=== PATIENT | female | born 1960 | race Two or more races ===

== ENCOUNTER → 2017-03-26 | Outpatient (CLI) | payer OTHER ==
[~2017-03-26] MED LIST: ATOR20TA15; CARV6.252; ESTR0.053; GADODIAMIDE PF 287 MG/ML 5 ML VIAL (for RAD MRI) IV PUSH ONE; GLIM1TAB; GLUC1TES75; LOSA50TA; MOME0.1C23; OMEP20CA2; POTA10TA2; PROG200C; TRAM50TA; TRIA37.53
[2017-03-26 12:02] LABS: CREATININE 0.92 MG/DL (0.50-1.00)
--- NOTE | 2017-03-26 13:21 | RADRPT ---
EXAM DATE/TIME: 03/26/2017 12:20 [facility] COMPARISON: No previous studies available for comparison. INDICATIONS : Brain mass. Pre op. CONTRAST: 14 cc Omniscan (gadodiamide) IV MEDICAL HISTORY : Hypertension. Diabetes mellitus type 2. SURGICAL HISTORY : Cholecystectomy. Appendectomy. Tubal ligation. ENCOUNTER: Subsequent ACUITY: 1 month PAIN SCORE: 0/10 LOCATION: cranial TECHNIQUE: An MRI brain stealth procedure was performed. The information will be used in the OR for localizatio n. FINDINGS: Axial contrast images were obtained for intraoperative localization There is afocal 2.3 cm mass arising from the cribriform plate, probably meningioma. No other masses are appreciated. Study was performed for stereotactic localization not diagnosis. CONCLUSION: Mass as described above. Images were transferred to the operating room digital format. Byron Dorsey MD FACR on March 26, 2017 at 13:18 Board Certified Radiologist. This report was verified electronically.
== END ==
LOC: HRAD 09:15
PROVIDERS: ATTEND Neurological Surgery
DX: D49.6 Neoplasm of unspecified behavior of brain (principal)
CPT/HCPCS: 70552; 82565; 84520; A9579

== ENCOUNTER 2017-05-06 05:47 | Inpatient (IN) | payer OTHER ==
[~2017-05-06] VITALS: Ht 160 cm; Wt 90.7 kg
[~2017-05-06 05:47] MED LIST changes: -ATOR20TA15; +ATOR20TA15 PO; -CARV6.252; +CARV6.252 PO; -ESTR0.053; +ESTR0.053 TD; -GADODIAMIDE PF 287 MG/ML 5 ML VIAL (for RAD MRI) IV PUSH ONE; -GLIM1TAB; +GLIM1TAB PO; -LOSA50TA; +LOSA50TA PO; -MOME0.1C23; +MOME0.1C23 TOPICAL; -OMEP20CA2; +OMEP20CA2 PO; -POTA10TA2; +POTA10TA2 PO; -PROG200C; +PROG200C PO; -TRAM50TA; +TRAM50TA PO; -TRIA37.53; +TRIA37.53 PO
[2017-05-06] MEDS ORDERED: METOPROLOL TARTRATE 25 MG TAB PO PRN (06:15)
[2017-05-06] MEDS ORDERED: CHLORHEXIDINE GLUCONATE 2 % 1 PACK (2 CLOTHS) TOPICAL PRN (06:15)
[2017-05-06] MEDS ORDERED: SODIUM CHLORID 0.9% 500 ML IV PRN (06:15)
[2017-05-06] MEDS ORDERED: POVIDONE IODINE 5% (ANTISEPSIS KIT) 4 APPLICATIONS EACH NARE PRN (06:15)
[2017-05-06] MEDS ORDERED: LACTATED RINGER'S 1000 ML IV PRN (06:15)
--- NOTE | 2017-05-06 06:30 | RADRPT ---
EXAM DATE/TIME: 05/06/2017 06:12 [facility] COMPARISON: No previous studies available for comparison. INDICATIONS : Evaluate for pneumonia, pneumothorax, or any communicable disease. Pre op cranial surgery. MEDICAL HISTORY : Hypertension. Diabetes mellitus type II. SURGICAL HISTORY : Cholecystectomy. Appendectomy. Tubal ligation. ENCOUNTER: Initial ACUITY: 1 day PAIN SCORE: 0/10 LOCATION: Bilateral chest FINDINGS: A single view of the chest demonstrates the lungs to be symmetrically aerated without evidence of mas s, infiltrate or effusion. No evidence of pneumothorax. The cardiomediastinal contours are unremark able. Osseous structures are intact. CONCLUSION: The lungs are clear. Marco Rodarte MD on May 06, 2017 at 6:28 Board Certified Radiologist. This report was verified electronically.
[2017-05-06] MEDS: LACTATED RINGER'S 1000 ML INJ 1,000 ML IV SCH (06:45)
[2017-05-06] MEDS ORDERED: GELFOAM SIZE 100 ONE (07:48)
[2017-05-06] MEDS ORDERED: GENTAMICIN SULFATE 80 MG/2 ML VIAL ONE (07:48)
[2017-05-06] MEDS ORDERED: THROMBIN (TOPICAL) 5,000 UNIT VIAL ONE (07:48)
[2017-05-06] MEDS ORDERED: LIDOCAINE 1%/EPINEPHrine 1:100,000 SOLN 50 ML VIAL ONE (07:48)
[2017-05-06] MEDS: ceFAZolin 1,000 MG/NS 100 ML IV SCH ×4 (07:58→11:56)
[2017-05-06] MEDS ORDERED: ACETAMINOPHEN 1000 MG/100 ML 100 ML IV ONE (08:06)
[2017-05-06] MEDS ORDERED: SUGAMMADEX SODIUM 200 MG/2 ML VIAL IV PUSH ONE ×2 (08:06)
[2017-05-06] MEDS ORDERED: APREPITANT 40 MG CAP ONE (08:26)
[2017-05-06] MEDS ORDERED: FAMOTIDINE 20 MG/2 ML VIAL ONE (08:34)
[2017-05-06] MEDS ORDERED: MIDAZOLAM HCL 2 MG/2 ML VIAL IV ONE (12:00)
[2017-05-06] MEDS ORDERED: ONDANSETRON HCL 4 MG/2 ML VIAL IV ONE (12:00)
[2017-05-06] MEDS ORDERED: ePHEDrine/NS 25 MG/5 ML SYRINGE IV ONE (12:00)
[2017-05-06] MEDS ORDERED: VECURONIUM BROMIDE 20 MG VIAL IV ONE (12:00)
[2017-05-06] MEDS ORDERED: DEXAMETHASONE SOD PHOS 4 MG/ML VIAL IV ONE (12:00)
[2017-05-06] MEDS ORDERED: SODIUM CHLORIDE 0.9% 20 ML VIAL IV ONE (12:00)
[2017-05-06] MEDS ORDERED: LIDOCAINE HCL 1% PF 5 ML SYRINGE OTHER ONE (12:00)
[2017-05-06] MEDS ORDERED: PHENYLEPH/NS 1000 MCG/10 ML SYR IV ONE (12:00)
[2017-05-06] MEDS ORDERED: PROPOFOL 200 MG/20 ML AMP IV ONE (12:00)
[2017-05-06] MEDS ORDERED: GLYCOPYRROLATE 1 MG/5 ML SYRINGE IV PUSH ONE (12:00)
[2017-05-06] MEDS ORDERED: NORMOSOL R INJ 1,000 ML IV ONE (12:00)
[2017-05-06] MEDS ORDERED: PHENYLEPHRINE HCL 10 MG/ML VIAL IV ONE (12:00)
[2017-05-06] MEDS ORDERED: ROCURONIUM INJ 50 MG/5 ML SYRINGE IV PUSH ONE (12:00)
[2017-05-06] MEDS ORDERED: ceFAZolin INJ 1,000 MG VIAL IV ONE (12:00)
[2017-05-06] MEDS ORDERED: DO NOT ADM ANY ANTICOAGULANT DRUGS PRN (14:56)
[2017-05-06] MEDS ORDERED: *HYDROmorphone PF 1 MG VIAL PERIprocedural Use ONLY ONE (15:35)
[2017-05-06] MEDS ORDERED: HYDROmorphone HCL 2 MG TAB PO PRN (15:45)
[2017-05-06] MEDS ORDERED: NALOXONE HCL 0.4 MG/ML AMP IV PUSH PRN ×2 (15:45→21:45)
[2017-05-06] MEDS ORDERED: traMADol HCL 50 MG TAB PO PRN (15:45)
--- NOTE | 2017-05-06 15:48 | PD.OP ---
Operative Report Date of Surgery: May 06, 2017 Preoperative Diagnosis: (1) Meningioma Cribriform plate meningioma Postoperative Diagnosis: (1) Meningioma Cribriform plate meningioma Procedure: Bifrontal craniotomy-resection cribriform plate meningioma. Dura reconstruction with bovine pericardium graft Anesthesia: Gen. Surgeon: Jorge Chow Air Duct Mechanic(s): Raiza Miller Operation and Findings: Findings: Very firm noncalcified dural based lesion arising from the anterior midline at the jerel elli and extending along the cribriform plate to the midline planum sphenoidale. Procedure in detail: The patient was brought into the operating room and general endotracheal anesthesia induced without difficulty. Lines were established by anesthesia ZULEYKA hose and sequential compression devices were in place Zaldivar catheter was in place Appropriate timeout procedure was performed with all personal present and in agreement The patient was positioned in supine position with all extremities appropriately padded. The head was placed in the 3-point fixation device and secured to the operating room table with the neck slightly flexed and the head mildly rotated. The BrainLab system was registered with the laser facial registration system and landmarks verified. The BrainLab system was used to bo the initial scalp flap and craniotomy opening, and was further used extensively during the procedure to guide the resection of the neoplasm. The hair overlying the scalp incision at the bifrontal region was shaved with clippers, and the operative site was sterilely prepped and draped. 1% Xylocaine with epinephrine was used for local infiltration over the incision site which was made in a curvilinear fashion over the bifrontal region just above the hairline and carried sharply down to the cranium. The scalp flap was elevated with the periosteal elevator and retracted with large scalp hooks. The 5 mm bone bur was used to place a bur hole, and the craniotome was used to incise the bone flap with the lower aspect of the bone flap at the superior edge of the frontal sinus but not extending to the frontal sinus wall.. 4-0 Nurolon dural tack up sutures placed through wire passing holes made along the edge of the craniotomy site were used as needed. The dura was extremely thin and mostly adherent to the bone flap, with residual dura edges retracted with 4-0 Nurolon suture. The sagittal sinus was tied off with 4-0 Nurolon suture and incised at the very anterior frontal region in order to preserve venous drainage. The falx was incised down to the region of the neoplasm and retracted. There was no significant brain edema noted upon opening the dura. The neoplasm was circumferentially from the surrounding arachnoid and parenchymal tissue with the [place] dissectors and the bipolar forceps with any bridging vessels coagulated with the bipolar forceps and incised with the microscissors. Any major vascular structures were carefully preserved. Cottonoid patties were used as needed to maintain the resection plane surrounding the tumor. Once the periphery of the tumor was delineated, the central portion was gradually debulked using the tissue biopsy forceps and the [place] device with bleeding controlled with bipolar forceps. The periphery of the tumor was then from the surrounding tissues and removed. The bilateral olfactory nerve was displaced laterally along the inferior border of the tumor at its attachment point to the frontal skull base and cuneiform plate region. The olfactory nerves were preserved. The anterior cerebral arteries were directly visualized and preserved behind the arachnoid plane. The dural attachment point of the neoplasm was totally resected and the dura adjacent to the cribriform plate was carefully scraped with the [place] 1 dissector and cauterized to remove any small residual fragments or neoplasm. The tumor resection site was carefully examined and bleeding carefully controlled. There was no significant bleeding at the time of closure. The brain was soft and pulsatile at the time of closure A gross total resection of the lesion was achieved. Since the dura was extremely thin and adherent to the bone flap, the dural defect was closed with a properly prepared bovine pericardium graft which was secured with 4-0 Nurolon through openings made along the edge of the craniotomy site with the wire-passing drill. The bone flap was then replaced with titanium maxillofacial plates and screws. DuraSeal was then used to secure the edges of the patch graft. [place] bone paste was then properly prepared and used to smooth out the residual defect along the craniotomy site and the titanium plates. The closure was performed with 2-0 Vicryl for the galeal closure, 4-0 nylon running for these scalp closure. A dressing of sterile Telfa, 4 x 4's, and a head stockinette were placed. The 3-point head fixation device was removed The patient was taken to recovery room in stable condition All counts were correct at the end of the case Estimated blood loss was 200 cc. Specimen of the neoplasm was sent to pathology for permanent section Jorge Chow MD May 06, 2017 15:48
[2017-05-06] MEDS: D5-1/2 NS + KCL 20 MEQ INJ 1,000 ML IV SCH (15:53)
[2017-05-06] MEDS ORDERED: *ONDANSETRON 4 MG VIAL PERIprocedural Use ONLY ONE (15:54)
[2017-05-06 16:30] VITALS: BP_SYST 134; BP_SYST 135; BP_DIAS 68; BP_DIAS 75; PULSE 68; PULSE 72; RESP 24; TEMP 98.6; O2SAT 99
[2017-05-06] MEDS: ONDANSETRON HCL 4 MG/2 ML VIAL IV PUSH PRN (17:37)
[2017-05-06 18:00] VITALS: PULSE 61
[2017-05-06 20:00] VITALS: BP 140/70; PULSE 56; RESP 15; TEMP 98.5; O2SAT 99
[2017-05-06] MEDS ORDERED: niCARdipine 25 MG/NS 250 ML Vial2Bag or IV room IV PRN ×2 (20:00)
[2017-05-06] MEDS: DOCUSATE SODIUM 100 MG CAP PO SCH (21:00)
[2017-05-06] MEDS: PROMETHAZINE INJ 25 MG/ML VIAL IM PRN (21:58)
[2017-05-06 22:00] VITALS: PULSE 73
[2017-05-06] MEDS: traMADol HCL 50 MG TAB PO PRN (22:35)
[2017-05-07] VITALS (12 sets, daily range): BP systolic 118–133; BP diastolic 51–64; PULSE 63–84; RESP 16–20; TEMP 98.5–102.5; O2SAT 93–99
[2017-05-07] MEDS: D5-1/2 NS + KCL 20 MEQ INJ 1,000 ML IV SCH ×2 (01:14→11:38)
--- NOTE | 2017-05-07 05:26 | RADRPT ---
EXAM DATE/TIME: 05/07/2017 05:15 [facility] COMPARISON: MRI BRAIN STEALTH W CONTRAST, March 26, 2017, 12:20. INDICATIONS : Post-operative craniotomy RADIATION DOSE: 50.91 CTDIvol (mGy) MEDICAL HISTORY : Hypertension. Gastroesophageal reflux disease. frontal lobe mengionma SURGICAL HISTORY : Appendectomy. Cholecystectomy.craniotomy ENCOUNTER: Initial ACUITY: 1 day PAIN SCALE: 0/10 LOCATION: cranial TECHNIQUE: Multiple contiguous axial images were obtained of the head. Using automated exposure control and adj ustment of the mA and/or kV according to patient size, radiation dose was kept as low as reasonably a chievable to obtain optimal diagnostic quality images. DICOM format image data is available electro nically for review and comparison. FINDINGS: Postsurgical changes from frontal craniotomy and removal of a cribriform plate tumor. There is good approximation of the craniotomy bone. Mild amount of pneumocephalus measuring up to 5 mm in thicknes s and scattered areas of subgaleal gas. No evidence of midline shift. The ventricles are normal in size. No evidence of intra-axial blood. No significant cerebral edema. No extra axial fluid. The posterior fossa structures are grossly intact. Normal pneumatization of the frontal, ethmoid and sph enoid sinuses. CONCLUSION: Postsurgical changes from frontal craniotomy. No evidence of intra-or extra-axial blood. Marco Rodarte MD on May 07, 2017 at 5:22 Board Certified Radiologist. This report was verified electronically.
[2017-05-07 05:35] LABS: AUTOMATED NEUTROPHIL # 14.1 TH/MM3 (1.8-7.7); BASOPHIL % 0.1 % (0.0-2.0); HEMATOCRIT 31.3 % (35.0-46.0); HEMO FLAGS DIFF FINAL; LYMPH % 7.8 % (9.0-44.0); LYMPHOCYTE # 1.3 TH/MM3 (1.0-4.8); MEAN CELL VOLUME 79.9 FL (80.0-100.0); MEAN CORPUSCULAR HGB CONC 32.5 % (32.0-36.0); MONO % 5.9 % (0.0-8.0); NEUT % 86.2 % (16.0-70.0); PLATELET COUNT 188 TH/MM3 (150-450); RED BLOOD COUNT 3.92 MIL/MM3 (4.00-5.30); RED CELL DISTRIBUTION WIDTH 13.7 % (11.6-17.2); WHITE BLOOD COUNT 16.4 TH/MM3 (4.0-11.0)
[2017-05-07 05:48] LABS: APTT (PATIENT) 22.9 SEC (24.3-30.1); INTERNATIONAL NORMALIZED RATIO 1.1 RATIO; PROTHROMBIN TIME - PATIENT 10.7 SEC (9.8-11.6)
[2017-05-07 05:54] LABS: BICARBONATE 25.5 MEQ/L (21.0-32.0); POTASSIUM 3.5 MEQ/L (3.5-5.1)
[2017-05-07] MEDS: LACTATED RINGER'S 1000 ML INJ 1,000 ML IV SCH (06:15)
[2017-05-07] MEDS: CHLORHEXIDINE GLUCONATE 2 % 1 PACK (2 CLOTHS)(extra cloths) TOPICAL SCH ×2 (09:00→09:18)
[2017-05-07] MEDS: DOCUSATE SODIUM 100 MG CAP PO SCH ×2 (09:20→19:39)
[2017-05-07] MEDS: PANTOPRAZOLE SOD 40 MG DELAYED RELEASE TAB PO SCH (09:20)
--- NOTE | 2017-05-07 09:22 | HHI.NSPN ---
(Joseph Archuleta) History Chief Complaint: Slight headache. (Joseph Archuleta) Interval History 05/06: The patient presented to [facility] to undergo a 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 Post-operatively the patient was admitted to the [facility] unit for further monitoring and care. 05/07: This morning the patient is awake, alert and readily interacts. She does say she has a slight headache and has some numbness to the right side of the face. (Joseph Archuleta) System Review Comments HEENT: Surgical incision to front scalp. Slight numbness to the right side of the face. INTEGUMENTARY: Slight numbness to the right side of the face. MUSCULOSKELETAL: Some tingling to the distal fingertips of the right hand. NEUROLOGICAL: Slight headache. Slight numbness to the right side of the face. Some tingling to the distal fingertips of the right hand. (Joseph Archuleta) Exam Results 05/05/17 05/05/17 05/06/17 05/06/17 05/07/17 05/07/17 06:00 18:00 06:00 18:00 06:00 18:00 Intake Total 2748 ml 90 ml Output Total 1300 ml 650 ml Balance 1448 ml -560 ml Intake Oral 0 ml 90 ml IV Total 348 ml Other 2400 ml Output Urine Total 1100 ml 650 ml Estimated Blood Loss 200 ml # Bowel Movements 0 Vital Signs Date Time Temp Pulse Resp B/P (MAP) Pulse Ox O2 Delivery O2 Flow Rate FiO2 05/07/17 06:00 66 05/07/17 04:00 98.8 66 17 125/58 (80) 99 05/07/17 04:00 66 05/07/17 02:00 81 05/07/17 00:00 63 05/07/17 00:00 98.6 63 16 130/62 (84) 99 Arterial Line Automatic Cuff 05/06/17 22:00 73 05/06/17 21:15 59 156/74 05/06/17 20:00 56 05/06/17 20:00 98.5 56 15 140/70 (93) 99 05/06/17 20:00 100 Nasal Cannula 2.00 05/06/17 18:00 61 05/06/17 16:30 72 05/06/17 16:30 98.6 68 24 134/68 (90) 99 135/75 (95) 05/06/17 16:30 99 Nasal Cannula 2.00 05/06/17 16:15 98.1 70 13 101/51 (68) 99 Nasal Cannula 2 131/65 (87) 05/06/17 16:00 70 16 103/52 (69) 97 Nasal Cannula 2 119/63 (81) 05/06/17 15:45 71 21 102/52 (69) 97 Nasal Cannula 2 117/63 (81) 05/06/17 15:30 74 20 99/50 (66) 98 Nasal Cannula 2 116/61 (79) 05/06/17 15:15 73 19 94/47 (63) 97 Nasal Cannula 2 106/55 (72) 05/06/17 15:00 73 21 93/45 (61) 96 Nasal Cannula 2 104/55 (71) 05/06/17 14:58 98.5 93 12 98/49 (65) 98 Nasal Cannula 2 05/06/17 06:49 98.9 65 20 163/69 (100) 98 (Joseph Archuleta) Physical Examination GENERAL: Awake & alert, readily interacts, affect slightly flat, no distress evident. HEENT: Intact post-surgery dressing to right frontal scalp. Pupils 2 mm brisk, EOMI but sluggish. Sensation decreased to right side of the face. MUSCULOSKELETAL: [place] w/o difficulty. No evident deformity or clubbing. NEUROLOGICAL: AAOx3. Speech clear & appropriate. Follows simple commands. Right CN VII deficit, EOMI but sluggish o/w CN II-XII appear intact. Sensation intact to light touch to the extremities except for the distal right hand digits. Motor strength is 5/5 to all major flexion & extension muscle groups. Right hand intrinsics 4+ to 5/5, unable to evaluate left due to pain & arterial line catheter. (Joseph Archuleta) Lab, Micro, Other Results Recent Impressions Head CT 05/07/17 0600 Signed Impressions: Service Date/Time: Sunday, May 07, 2017 05:15 - CONCLUSION: Postsurgical changes from frontal craniotomy. No evidence of intra-or extra-axial blood. Marco Rodarte MD Chest X-Ray 05/06/17 0607 Signed Impressions: Service Date/Time: Saturday, May 06, 2017 06:12 - CONCLUSION: The lungs are clear. Marco Rodarte MD Laboratory Tests Test 05/07/17 05:05 White Blood Count 16.4 TH/MM3 Red Blood Count 3.92 MIL/MM3 Hemoglobin 10.2 GM/DL Hematocrit 31.3 % Mean Corpuscular Volume 79.9 FL Mean Corpuscular Hemoglobin 26.0 PG Mean Corpuscular Hemoglobin Concent 32.5 % Red Cell Distribution Width 13.7 % Platelet Count 188 TH/MM3 Mean Platelet Volume 8.8 FL Neutrophils (%) (Auto) 86.2 % Lymphocytes (%) (Auto) 7.8 % Monocytes (%) (Auto) 5.9 % Eosinophils (%) (Auto) 0.0 % Basophils (%) (Auto) 0.1 % Neutrophils # (Auto) 14.1 TH/MM3 Lymphocytes # (Auto) 1.3 TH/MM3 Monocytes # (Auto) 1.0 TH/MM3 Eosinophils # (Auto) 0.0 TH/MM3 Basophils # (Auto) 0.0 TH/MM3 CBC Comment DIFF FINAL Differential Comment Prothrombin Time 10.7 SEC Prothromb Time International Ratio 1.1 RATIO Activated Partial Thromboplast Time 22.9 SEC Blood Urea Nitrogen 11 MG/DL Creatinine 0.78 MG/DL Random Glucose 162 MG/DL Calcium Level 7.6 MG/DL Sodium Level 142 MEQ/L Potassium Level 3.5 MEQ/L Chloride Level 108 MEQ/L Carbon Dioxide Level 25.5 MEQ/L Anion Gap 9 MEQ/L Estimat Glomerular Filtration Rate 76 ML/MIN (Joseph Archuleta) Medical Decision Making Impression and Plan Impression: 1. Cribriform plate meningioma 2. Diabetes 3. Hypertension The patient is doing well post-operatively except for mild CN deficits post- operatively. Reviewed labs & CT images/report for today. Leukocytosis most likely reactive due to surgery. Anaemia most likely due to IVF. CT brain demonstrated post- surgical changes w/o any acute findings. POD #1 () s/p: Bifrontal craniotomy-resection cribriform plate meningioma. Dura reconstruction with bovine pericardium graft Postoperative Diagnosis: (1) Meningioma Cribriform plate meningioma Plan: Frequent neuro checks. Stat CT brain for any decrease in neuro status. Will start heart healthy 1800 leonarda ADA diet. Mobilise patient w/assistance. PT eval & tx. Will d/c IVF when taking PO fluids adequately. (Joseph Archuleta) Attending Statement The exam, history, and the medical decision-making described in the above note were completed with the assistance of the mid-level provider. I reviewed and agree with the findings presented. I attest that I had a [id number] encounter with the patient on the same day, and personally performed and documented my assessment and findings in the medical record. Patient is examined today in the presence of her family in the room. She is awake and alert oriented conversant and appropriate. Her speech is clear Mild diffuse frontal edema-subgaleal fluid collection. Extraocular movements and visual rai confrontation intact Fascial sensorimotor testing intact Moves all extremities with good strength She has been intermittently very painful. I discussed with her the medication options. She does not want morphine, codeine, oxycodone due to nausea. She is tolerating Ultram up to 100 mg every 6 hours but states that it does not fully control the pain. We will add Ofirmev for additional pain control. Continue therapy (Jorge Chow MD) Joseph Archuleta May 07, 2017 09:22 Jorge Chow MD May 07, 2017 20:12
[2017-05-07] MEDS: traMADol HCL 50 MG TAB PO PRN (16:00)
[2017-05-07] MEDS ORDERED: ACETAMINOPHEN 1000 MG/100 ML 100 ML IV PRN (19:15)
[2017-05-08] VITALS (7 sets, daily range): BP systolic 118–165; BP diastolic 60–79; PULSE 64–76; RESP 16–18; TEMP 98.2–99.1; O2SAT 88–94
[2017-05-08] MEDS: traMADol HCL 50 MG TAB PO PRN ×3 (02:17→21:46)
[2017-05-08] MEDS: ONDANSETRON HCL 4 MG/2 ML VIAL IV PUSH PRN ×2 (08:48→18:51)
[2017-05-08] MEDS: CHLORHEXIDINE GLUCONATE 2 % 1 PACK (2 CLOTHS)(extra cloths) TOPICAL SCH (08:51)
[2017-05-08] MEDS: PANTOPRAZOLE SOD 40 MG DELAYED RELEASE TAB PO SCH (11:11)
[2017-05-08] MEDS: DOCUSATE SODIUM 100 MG CAP PO SCH ×2 (11:11→21:46)
--- NOTE | 2017-05-08 11:27 | HHI.NSPN ---
(Joseph Archuleta) History Chief Complaint: Improving headache. (Joseph Archuleta) Interval History 05/06: The patient presented to [facility] to undergo a 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 Post-operatively the patient was admitted to the [facility] unit for further monitoring and care. 05/07: This morning the patient is awake, alert and readily interacts. She does say she has a slight headache and has some numbness to the right side of the face. 05/08: When seen this morning the patient states that she does have a headache. She says she is doing better than yesterday. She denies any numbness or tingling to the face. She denies any pain, numbness, tingling or weakness to the extremities. The patient was doing well yesterday and was transferred from [facility] to a regular med/surg floor. (Joseph Archuleta) Exam Results 05/06/17 05/06/17 05/07/17 05/07/17 05/08/17 05/08/17 06:00 18:00 06:00 18:00 06:00 18:00 Intake Total 2748 ml 90 ml 1490 ml 1125 ml Output Total 1300 ml 650 ml 650 ml Balance 1448 ml -560 ml 840 ml 1125 ml Intake Oral 0 ml 90 ml 240 ml 1125 ml IV Total 348 ml 1250 ml Other 2400 ml Output Urine Total 1100 ml 650 ml 650 ml Estimated Blood Loss 200 ml # Voids 1 2 # Bowel Movements 0 0 0 Vital Signs Date Time Temp Pulse Resp B/P (MAP) Pulse Ox O2 Delivery O2 Flow Rate FiO2 05/08/17 07:58 98.2 66 16 139/75 (96) 94 05/08/17 04:45 98.6 76 16 118/60 (79) 94 05/08/17 00:40 99.0 75 18 120/64 (82) 93 05/08/17 00:00 Room Air 05/07/17 20:00 99.7 79 17 120/64 (82) 93 05/07/17 18:39 99.3 05/07/17 17:14 102.5 84 20 133/64 (87) 94 05/07/17 16:00 99.6 82 19 130/51 (77) 97 05/07/17 14:00 74 05/07/17 12:00 78 05/07/17 12:00 99.2 78 20 118/56 (76) 99 05/07/17 10:00 72 05/07/17 08:00 98.5 65 17 122/59 (80) 96 05/07/17 08:00 65 05/07/17 07:00 96 Room Air 05/07/17 06:00 66 05/07/17 04:00 98.8 66 17 125/58 (80) 99 05/07/17 04:00 66 05/07/17 02:00 81 05/07/17 00:00 63 05/07/17 00:00 98.6 63 16 130/62 (84) 99 Arterial Line Automatic Cuff 05/06/17 22:00 73 05/06/17 21:15 59 156/74 05/06/17 20:00 56 05/06/17 20:00 98.5 56 15 140/70 (93) 99 05/06/17 20:00 100 Nasal Cannula 2.00 05/06/17 18:00 61 05/06/17 16:30 72 05/06/17 16:30 98.6 68 24 134/68 (90) 99 135/75 (95) 05/06/17 16:30 99 Nasal Cannula 2.00 05/06/17 16:15 98.1 70 13 101/51 (68) 99 Nasal Cannula 2 131/65 (87) 05/06/17 16:00 70 16 103/52 (69) 97 Nasal Cannula 2 119/63 (81) 05/06/17 15:45 71 21 102/52 (69) 97 Nasal Cannula 2 117/63 (81) 05/06/17 15:30 74 20 99/50 (66) 98 Nasal Cannula 2 116/61 (79) 05/06/17 15:15 73 19 94/47 (63) 97 Nasal Cannula 2 106/55 (72) 05/06/17 15:00 73 21 93/45 (61) 96 Nasal Cannula 2 104/55 (71) 05/06/17 14:58 98.5 93 12 98/49 (65) 98 Nasal Cannula 2 05/06/17 06:49 98.9 65 20 163/69 (100) 98 (Joseph Archuleta) Physical Examination GENERAL: Awake & alert, readily interacts, affect essentially flat, no distress evident. HEENT: Frontal scalp surgical incision w/intact Xeroform gauze. Pupils 2 mm brisk, EOMI. MUSCULOSKELETAL: [place] w/o difficulty. No evident deformity or clubbing. NEUROLOGICAL: AAOx3. Speech clear & appropriate. Follows simple commands. CN II-XII appear grossly intact. Sensation intact to light touch to the extremities except for the distal right hand digits. Motor strength is 5/5 to all major flexion & extension muscle groups. Right hand intrinsics 4+ to 5/5, left 3+ to 4/5. (Joseph Archuleta) Lab, Micro, Other Results Recent Impressions Head CT 05/07/17 0600 Signed Impressions: Service Date/Time: Sunday, May 07, 2017 05:15 - CONCLUSION: Postsurgical changes from frontal craniotomy. No evidence of intra-or extra-axial blood. Marco Rodarte MD Chest X-Ray 05/06/17 0607 Signed Impressions: Service Date/Time: Saturday, May 06, 2017 06:12 - CONCLUSION: The lungs are clear. Marco Rodarte MD Laboratory Tests Test 05/07/17 05:05 White Blood Count 16.4 TH/MM3 Red Blood Count 3.92 MIL/MM3 Hemoglobin 10.2 GM/DL Hematocrit 31.3 % Mean Corpuscular Volume 79.9 FL Mean Corpuscular Hemoglobin 26.0 PG Mean Corpuscular Hemoglobin Concent 32.5 % Red Cell Distribution Width 13.7 % Platelet Count 188 TH/MM3 Mean Platelet Volume 8.8 FL Neutrophils (%) (Auto) 86.2 % Lymphocytes (%) (Auto) 7.8 % Monocytes (%) (Auto) 5.9 % Eosinophils (%) (Auto) 0.0 % Basophils (%) (Auto) 0.1 % Neutrophils # (Auto) 14.1 TH/MM3 Lymphocytes # (Auto) 1.3 TH/MM3 Monocytes # (Auto) 1.0 TH/MM3 Eosinophils # (Auto) 0.0 TH/MM3 Basophils # (Auto) 0.0 TH/MM3 CBC Comment DIFF FINAL Differential Comment Prothrombin Time 10.7 SEC Prothromb Time International Ratio 1.1 RATIO Activated Partial Thromboplast Time 22.9 SEC Blood Urea Nitrogen 11 MG/DL Creatinine 0.78 MG/DL Random Glucose 162 MG/DL Calcium Level 7.6 MG/DL Sodium Level 142 MEQ/L Potassium Level 3.5 MEQ/L Chloride Level 108 MEQ/L Carbon Dioxide Level 25.5 MEQ/L Anion Gap 9 MEQ/L Estimat Glomerular Filtration Rate 76 ML/MIN (Joseph Archuleta) Medical Decision Making Impression and Plan Impression: 1. Cribriform plate meningioma 2. Diabetes 3. Hypertension The patient continues to do well post-operatively, no evident CN deficits. CT brain demonstrated post-surgical changes w/o any acute findings. Physical Therapy recommended home w/Home Health. Went 3 feetusing walker, may need brief inpatient. POD #2 () s/p: Bifrontal craniotomy-resection cribriform plate meningioma. Dura reconstruction with bovine pericardium graft Postoperative Diagnosis: (1) Meningioma Cribriform plate meningioma Plan: Neuro checks. Stat CT brain for any decrease in neuro status. Heart healthy 1800 leonarda ADA diet. Mobilise patient w/assistance. PT eval & tx. Will start Miralax 17 grams PO QD since patient hasn't had a bowel movement yet. (Joseph Archuleta) Attending Statement The exam, history, and the medical decision-making described in the above note were completed with the assistance of the mid-level provider. I reviewed and agree with the findings presented. I attest that I had a [id number] encounter with the patient on the same day, and personally performed and documented my assessment and findings in the medical record. The patient is examined today on 05/08/17 in the presence of her family member. She is awake and alert conversant and appropriate Her speech is clear Extraocular movements are intact Visual rai to confrontation intact Facial sensory motor intact Sensation intact light touch all extremities Strength 5/5 all major flexion and extension groups upper and lower extremities Abdomen soft Respirations clear Pulse regular The incision is dry and intact The patient states that she still feels somewhat weak today. She did ambulate and sit up in a chair. She indicates only mild nausea. However her family states that she ate very little today. Patient encouraged to become more active, out of bed this evening, increased diet. A follow-up CT scan will be obtained on 05/09/17 and plan discharge home if scan is stable. (Jorge Chow MD) Joseph Archuleta May 08, 2017 11:27 Jorge Chow MD May 08, 2017 18:37
[2017-05-08] MEDS: POLYETHYLENE GLYCOL 17 GM PKG PO SCH (11:52)
[2017-05-08] MEDS: PROMETHAZINE INJ 25 MG/ML VIAL IM PRN (21:46)
--- NOTE | 2017-05-08 22:17 | RADRPT ---
EXAM DATE/TIME: 05/08/2017 22:04 [facility] COMPARISON: CHEST SINGLE AP, May 06, 2017, 6:12. INDICATIONS : Post op hypoxia. MEDICAL HISTORY : Hypertension. Gastroesophageal reflux disease. frontal lobe mengionma. SURGICAL HISTORY : None. ENCOUNTER: Initial ACUITY: 1 day PAIN SCORE: 0/10 LOCATION: Bilateral chest FINDINGS: PA and lateral views of the chest demonstrate patchy basilar airspace disease. Small effusions. Heart size enlarged. No pneumothorax. CONCLUSION: 1. Patchy basilar airspace disease and small bilateral pleural effusions. Findings are new since Dece mber 12. Dale Hughes MD on May 08, 2017 at 22:14 Board Certified Radiologist. This report was verified electronically.
[2017-05-09] VITALS (7 sets, daily range): BP systolic 131–153; BP diastolic 61–70; PULSE 63–70; RESP 18–20; TEMP 98.6–100.6; O2SAT 90–100
[2017-05-09 06:36] LABS: BICARBONATE 22.9 MEQ/L (21.0-32.0); POTASSIUM 3.6 MEQ/L (3.5-5.1)
[2017-05-09 08:04] LABS: HEMATOCRIT 35.3 % (35.0-46.0); MEAN CELL VOLUME 81.8 FL (80.0-100.0); MEAN CORPUSCULAR HGB CONC 33.1 % (32.0-36.0); PLATELET COUNT 173 TH/MM3 (150-450); RED BLOOD COUNT 4.32 MIL/MM3 (4.00-5.30); RED CELL DISTRIBUTION WIDTH 13.8 % (11.6-17.2); REVIEW FLAG FINAL; WHITE BLOOD COUNT 14.1 TH/MM3 (4.0-11.0)
[2017-05-09] MEDS: POLYETHYLENE GLYCOL 17 GM PKG PO SCH (09:00)
[2017-05-09] MEDS: DOCUSATE SODIUM 100 MG CAP PO SCH ×2 (09:06→21:25)
[2017-05-09] MEDS: PANTOPRAZOLE SOD 40 MG DELAYED RELEASE TAB PO SCH (09:06)
--- NOTE | 2017-05-09 10:15 | RADRPT ---
EXAM DATE/TIME: 05/09/2017 09:29 [place] COMPARISON: CT BRAIN W/O CONTRAST, May 07, 2017, 5:15. INDICATIONS : Post op removal of frontal lobe tumor. RADIATION DOSE: 34.41 CTDIvol (mGy) MEDICAL HISTORY : Hypertension. Diabetes mellitus type 2. Renal disease. SURGICAL HISTORY : Brain surgery. ENCOUNTER: Initial ACUITY: 1 day PAIN SCALE: 4/10 LOCATION: cranial TECHNIQUE: Multiple contiguous axial images were obtained of the head. Using automated exposure control and adj ustment of the mA and/or kV according to patient size, radiation dose was kept as low as reasonably a chievable to obtain optimal diagnostic quality images. DICOM format image data is available electro nically for review and comparison. FINDINGS: Today's exam is compared to the prior study of 05/07/2017. There continues to be postoperative change s with some intracranial air. This appears to be improving compared to the prior exam. The ventricles remain normal in size and midline in position. There is a small amount of punctate hemorrhage at the base of the frontal lobes just above the floor of the skull. This is stable compared to the prior ex am. Otherwise no new or acute intracranial hemorrhage is seen. There is good alignment of the craniot kostas flap along the frontal bone. Compared to the prior study there's been no other new or significant changes. CONCLUSION: 1. Improving postsurgical changes compared to the prior study. 2. Otherwise, stable CT scan of the brain in this postoperative patient. Robles Peter MD on May 09, 2017 at 10:10 Board Certified Radiologist. This report was verified electronically.
--- NOTE | 2017-05-09 13:57 | HHI.DCPOC ---
Discharge Care Plan Diagnosis: (1) Meningioma Your Health Problems Are: Incision/Drains Exercise Tolerance Goals to Promote Your Health * To prevent worsening of your condition and complications * To maintain your health at the optimal level No lifting, bending, pushing, pulling or other strenuous activity. No showering until the surgical incision is totally healed. Take the pain medication as prescribed. Avoid taking any medication that contains aspirin or NSAIDs (ibuprofen, naproxen , Motrin, Advil, Naprosyn) for at least a month. Follow up in the office in 2 weeks for a wound check. Directions to Meet Your Goals Take your medications as prescribed Follow your dietary instruction Follow activity as directed Keep your appointments as scheduled Take your immunizations and boosters as scheduled If your symptoms worsen call your PCP, if no PCP go to Urgent Care Center or Emergency Room Smoking is Dangerous to Your Health. Avoid second hand smoke Call the 24-hour hour crisis hotline for domestic abuse at Joseph Archuleta May 09, 2017 13:57
--- NOTE | 2017-05-09 13:58 | HHI.DS ---
Discharge Summary Admission Date May 06, 2017 at 05:47 Discharge Date: May 11, 2017 Admitting Diagnosis (1) Meningioma Diagnosis: Principal ICD Code: D32.9 - Benign neoplasm of meninges, unspecified CBC/BMP: 05/09/17 0605 05/09/17 0605 Significant Findings Laboratory Tests Test 05/07/17 05:05 05/09/17 06:05 White Blood Count 16.4 TH/MM3 (4.0-11.0) 14.1 TH/MM3 (4.0-11.0) Red Blood Count 3.92 MIL/MM3 (4.00-5.30) Hemoglobin 10.2 GM/DL (11.6-15.3) Hematocrit 31.3 % (35.0-46.0) Mean Corpuscular Volume 79.9 FL (80.0-100.0) Mean Corpuscular Hemoglobin 26.0 PG (27.0-34.0) Neutrophils (%) (Auto) 86.2 % (16.0-70.0) Lymphocytes (%) (Auto) 7.8 % (9.0-44.0) Neutrophils # (Auto) 14.1 TH/MM3 (1.8-7.7) Monocytes # (Auto) 1.0 TH/MM3 (0-0.9) Activated Partial Thromboplast Time 22.9 SEC (24.3-30.1) Random Glucose 162 MG/DL (74-106) Calcium Level 7.6 MG/DL (8.5-10.1) 8.1 MG/DL (8.5-10.1) Chloride Level 108 MEQ/L (98-107) Estimat Glomerular Filtration Rate 76 ML/MIN (>89) 84 ML/MIN (>89) Hospital Course 05/06: The patient presented to [facility] to undergo a 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 Post-operatively the patient was admitted to the [facility] unit for further monitoring and care. 05/07: This morning the patient is awake, alert and readily interacts. She does say she has a slight headache and has some numbness to the right side of the face. 05/08: When seen this morning the patient states that she does have a headache. She says she is doing better than yesterday. She denies any numbness or tingling to the face. She denies any pain, numbness, tingling or weakness to the extremities. The patient was doing well yesterday and was transferred from [facility] to a regular med/surg floor. 05/09: The patient this afternoon is in bed and requires a nasal cannula to keep her oxygen saturation up. She does have slight aching to the frontal surgical incision and a headache that is better. Her major complaint is not being able to eat because she hasn't had a bowel movement yet. She also has some shortness of breath. A chest x-ray was done yesterday evening which demonstrated a patchy right basilar infiltrate and small effusions bilaterally. An EKG yesterday demonstrated sinus rhythm with nonspecific T-wave abnormality but was otherwise unremarkable. 05/10: Feels much better today. Was sitting up and walking Wants to go home. Undergoing eval by Medicine due to possible pneumonia On [facility] 05/11: awake and alert, ambulating around- at room air- good sats good IS efforts no cough no fever, no chills, no back pain complaints Medically stable for DC today Pt Condition on Discharge: Good Discharge Disposition: Discharge Home Discharge Instructions DIET: Follow Instructions for: As Tolerated, No Restrictions ACTIVITIES You can perform: Full Weight Bearing Activities to Avoid: Lifting/Bending, Strenuous Activity, Shower ADDITIONAL Activity Instructio: No lifting, bending, pushing, pulling or other strenuous activity. No showering until the surgical incision is totally healed. Additional Information Take the pain medication as prescribed. Avoid taking any medication that contains aspirin or NSAIDs (ibuprofen, naproxen , Motrin, Advil, Naprosyn) for at least a month. Follow up in the office in 2 weeks for a wound check. Joseph Archuleta May 09, 2017 13:58
[2017-05-09] MEDS ORDERED: DOCU1CAP39 PO (14:00)
[2017-05-09] MEDS ORDERED: POLY17S PO (14:00)
[2017-05-09] MEDS ORDERED: TRAM50TA PO (14:10)
[2017-05-09] MEDS: traMADol HCL 50 MG TAB PO PRN (14:32)
[2017-05-09] MEDS ORDERED: SOD PHOSPHATE/SOD BIPHOSPHATE (ADULT) ENEMA 133ML RECTAL ONE (15:00)
--- NOTE | 2017-05-09 15:01 | HHI.NSPN ---
History Chief Complaint: Can't eat. No bowel movement. 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 Post-operatively the patient was admitted to the [facility] unit for further monitoring and care. 05/07: This morning the patient is awake, alert and readily interacts. She does say she has a slight headache and has some numbness to the right side of the face. 05/08: When seen this morning the patient states that she does have a headache. She says she is doing better than yesterday. She denies any numbness or tingling to the face. She denies any pain, numbness, tingling or weakness to the extremities. The patient was doing well yesterday and was transferred from [facility] to a regular med/surg floor. 05/09: The patient this afternoon is in bed and requires a nasal cannula to keep her oxygen saturation up. She does have slight aching to the frontal surgical incision and a headache that is better. Her major complaint is not being able to eat because she hasn't had a bowel movement yet. She also has some shortness of breath. A chest x-ray was done yesterday evening which demonstrated a patchy right basilar infiltrate and small effusions bilaterally. An EKG yesterday demonstrated sinus rhythm with nonspecific T-wave abnormality but was otherwise unremarkable. System Review Comments HEENT: Some aching to the surgical incision. RESPIRATORY: Some shortness of breath. GASTROINTESTINAL: Not able to eat, nausea, hasn't had a bowel movement. NEUROLOGICAL: Slight headache that continues to improve. Exam Results 05/07/17 05/07/17 05/08/17 05/08/17 05/09/17 05/09/17 06:00 18:00 06:00 18:00 06:00 18:00 Intake Total 90 ml 1490 ml 1125 ml Output Total 650 ml 650 ml Balance -560 ml 840 ml 1125 ml Intake Oral 90 ml 240 ml 1125 ml IV Total 1250 ml Output Urine Total 650 ml 650 ml # Voids 1 2 1 # Bowel Movements 0 0 0 Vital Signs Date Time Temp Pulse Resp B/P (MAP) Pulse Ox O2 Delivery O2 Flow Rate FiO2 05/09/17 14:19 94 Nasal Cannula 2.00 05/09/17 12:01 99.8 69 20 144/66 (92) 94 05/09/17 07:38 Nasal Cannula 2.00 05/09/17 07:36 100.6 68 20 148/70 (96) 92 05/09/17 04:58 99.0 63 18 151/63 (92) 97 05/09/17 01:00 98.6 70 18 131/62 (85) 94 05/08/17 20:50 94 Nasal Cannula 2.00 05/08/17 20:29 99.1 64 18 165/66 (99) 88 05/08/17 16:53 98.5 69 16 154/63 (93) 90 05/08/17 12:00 98.5 64 16 149/79 (102) 92 05/08/17 07:58 98.2 66 16 139/75 (96) 94 05/08/17 04:45 98.6 76 16 118/60 (79) 94 05/08/17 00:40 99.0 75 18 120/64 (82) 93 05/08/17 00:00 Room Air 05/07/17 20:00 99.7 79 17 120/64 (82) 93 05/07/17 18:39 99.3 05/07/17 17:14 102.5 84 20 133/64 (87) 94 05/07/17 16:00 99.6 82 19 130/51 (77) 97 05/07/17 14:00 74 05/07/17 12:00 78 05/07/17 12:00 99.2 78 20 118/56 (76) 99 05/07/17 10:00 72 05/07/17 08:00 98.5 65 17 122/59 (80) 96 05/07/17 08:00 65 05/07/17 07:00 96 Room Air 05/07/17 06:00 66 05/07/17 04:00 98.8 66 17 125/58 (80) 99 05/07/17 04:00 66 05/07/17 02:00 81 05/07/17 00:00 63 05/07/17 00:00 98.6 63 16 130/62 (84) 99 Arterial Line Automatic Cuff 05/06/17 22:00 73 05/06/17 21:15 59 156/74 05/06/17 20:00 56 05/06/17 20:00 98.5 56 15 140/70 (93) 99 05/06/17 20:00 100 Nasal Cannula 2.00 05/06/17 18:00 61 05/06/17 16:30 72 05/06/17 16:30 98.6 68 24 134/68 (90) 99 135/75 (95) 05/06/17 16:30 99 Nasal Cannula 2.00 05/06/17 16:15 98.1 70 13 101/51 (68) 99 Nasal Cannula 2 131/65 (87) 05/06/17 16:00 70 16 103/52 (69) 97 Nasal Cannula 2 119/63 (81) 05/06/17 15:45 71 21 102/52 (69) 97 Nasal Cannula 2 117/63 (81) 05/06/17 15:30 74 20 99/50 (66) 98 Nasal Cannula 2 116/61 (79) 05/06/17 15:15 73 19 94/47 (63) 97 Nasal Cannula 2 106/55 (72) 05/06/17 15:00 73 21 93/45 (61) 96 Nasal Cannula 2 104/55 (71) 05/06/17 14:58 98.5 93 12 98/49 (65) 98 Nasal Cannula 2 Physical Examination GENERAL: Awake & alert, readily interacts, affect essentially flat, no distress evident. HEENT: Frontal scalp surgical incision w/intact Xeroform gauze. Pupils 2 mm brisk, EOMI. MUSCULOSKELETAL: SULLIVAN w/o difficulty. No evident deformity or clubbing. NEUROLOGICAL: AAOx3. Speech clear & appropriate. Follows simple commands. CN II-XII appear grossly intact. Sensation intact to light touch to the extremities except for the distal right hand digits. Motor strength is 5/5 to all major flexion & extension muscle groups. Right hand intrinsics 4+ to 5/5, left 3+ to 4/5. Lab, Micro, Other Results This practitioner independently reviewed the imaging below: CXR demonstrates a patchy right basilar infiltrate and small bilateral pleural effusions compared to that of . The CT brain this morning demonstrates improved post-operative changes when compared to that of . Recent Impressions Head CT 05/09/17 0600 Signed Impressions: Service Date/Time: Tuesday, May 09, 2017 09:29 - CONCLUSION: 1. Improving postsurgical changes compared to the prior study. 2. Otherwise, stable CT scan of the brain in this postoperative patient. Robles Peter MD Chest X-Ray 05/08/17 0000 Signed Impressions: Service Date/Time: April 22:04 - CONCLUSION: 1. Patchy basilar airspace disease and small bilateral pleural effusions. Findings are new since May 06. Dale Hughes MD Head CT 05/07/17 0600 Signed Impressions: Service Date/Time: Sunday, May 07, 2017 05:15 - CONCLUSION: Postsurgical changes from frontal craniotomy. No evidence of intra-or extra-axial blood. Marco Rodarte MD Laboratory Tests Test 05/07/17 05:05 05/09/17 06:05 White Blood Count 16.4 TH/MM3 14.1 TH/MM3 Red Blood Count 3.92 MIL/MM3 4.32 MIL/MM3 Hemoglobin 10.2 GM/DL 11.7 GM/DL Hematocrit 31.3 % 35.3 % Mean Corpuscular Volume 79.9 FL 81.8 FL Mean Corpuscular Hemoglobin 26.0 PG 27.0 PG Mean Corpuscular Hemoglobin Concent 32.5 % 33.1 % Red Cell Distribution Width 13.7 % 13.8 % Platelet Count 188 TH/MM3 173 TH/MM3 Mean Platelet Volume 8.8 FL 9.4 FL Neutrophils (%) (Auto) 86.2 % Lymphocytes (%) (Auto) 7.8 % Monocytes (%) (Auto) 5.9 % Eosinophils (%) (Auto) 0.0 % Basophils (%) (Auto) 0.1 % Neutrophils # (Auto) 14.1 TH/MM3 Lymphocytes # (Auto) 1.3 TH/MM3 Monocytes # (Auto) 1.0 TH/MM3 Eosinophils # (Auto) 0.0 TH/MM3 Basophils # (Auto) 0.0 TH/MM3 CBC Comment DIFF FINAL Differential Comment Prothrombin Time 10.7 SEC Prothromb Time International Ratio 1.1 RATIO Activated Partial Thromboplast Time 22.9 SEC Blood Urea Nitrogen 11 MG/DL 16 MG/DL Creatinine 0.78 MG/DL 0.71 MG/DL Random Glucose 162 MG/DL 100 MG/DL Calcium Level 7.6 MG/DL 8.1 MG/DL Sodium Level 142 MEQ/L 136 MEQ/L Potassium Level 3.5 MEQ/L 3.6 MEQ/L Chloride Level 108 MEQ/L 107 MEQ/L Carbon Dioxide Level 25.5 MEQ/L 22.9 MEQ/L Anion Gap 9 MEQ/L 6 MEQ/L Estimat Glomerular Filtration Rate 76 ML/MIN 84 ML/MIN Thyroid Stimulating Hormone 3rd Gen 0.429 uIU/ML Medical Decision Making Impression and Plan Impression: 1. Cribriform plate meningioma 2. Diabetes 3. Hypertension The patient continues to do well neurologically post-operatively. Patchy right basilar infiltrate and small bilateral pleural effusions. Constipation. Reviewed labs and imaging. Improving leukocytosis. EKG sinus rhythm w/nonspecific T-wave abnormality. CT brain this morning demonstrates improving post-surgical changes w/o any acute findings. Physical Therapy recommended home w/Home Health. Went 30 feet using walker, may need brief inpatient. POD #3 () s/p: Bifrontal craniotomy-resection cribriform plate meningioma. Dura reconstruction with bovine pericardium graft Postoperative Diagnosis: (1) Meningioma Cribriform plate meningioma Plan: Discussed plan of care with patient, family & Nursing. Neuro checks. Stat CT brain for any decrease in neuro status. Heart healthy 1800 leonarda ADA diet. Mobilise patient w/assistance. PT eval & tx. Continue Miralax 17 grams PO QD. Continue Docusated 100 mg PO BID. Fleets enema 133 mL TX now. Wean oxygen as tolerated per protocol. Hospitalist consult. Joseph Archuleta May 09, 2017 15:01
[2017-05-09] MEDS ORDERED: WALKER WHEELS/F1 MIS (15:02)
[2017-05-09] MEDS: ONDANSETRON HCL 4 MG/2 ML VIAL IV PUSH PRN (16:32)
[2017-05-09] MEDS ORDERED: GLUCAGON 1 MG/ML VIAL OTHER PRN (17:00)
[2017-05-09] MEDS ORDERED: DEXTROSE 50% IN WATER 50 ML VIAL(D50) IV PUSH PRN (17:00)
[2017-05-09] MEDS: INSULIN ASPART SUPPLEMENTAL SCALE SQ SCH ×2 (17:00→21:00)
[2017-05-09] MEDS ORDERED: RESP: ALBUTEROL 2.5 MG/IPRATROPIUM 0.5 MG NEB (PRN) NEB (17:00)
--- NOTE | 2017-05-09 17:02 | PD.CONS ---
HPI Service [facility] Hospitalists Consult Requested By Neurosurgery Reason for Consult Medical management Primary Care Physician Herman Garza M.D. Diagnoses: (1) Meningioma History of Present Illness 57 yrs old female with a PMHx of DM2, HTN and now s/p Bifrontal craniotomy 2/2 cribriform plate meningioma POD#3, for which [facility] has been consulted for evaluation of episode of Acute respiratory failure with Hypoxemia. CXR obtained on 05/08/17 reveals patchy airspace disease in the presence of WBC of 14.1 in abscess of febrile episode of cough production. Patient endorses shortness of breath without any chest pain. She complains of Nausea without any emesis. There is no report of GI bleed Review of Systems Except as stated in HPI: all other systems reviewed are Neg Past Family Social History Allergies: Coded Allergies: lisinopril (Verified Allergy, Severe, SEVERE COUGH, 05/06/17) ciprofloxacin (Verified Allergy, Intermediate, Itching, 05/06/17) codeine (Verified Allergy, Intermediate, Nausea/Vomiting, 05/06/17) morphine (Verified Allergy, Intermediate, Nausea/Vomiting, 05/06/17) oxycodone (Verified Allergy, Intermediate, Nausea/Vomiting, 05/06/17) Past Medical History DM2 HTN HLP Meningioma Past Surgical History Bifrontal craniotomy-resection cribriform plate meningioma 05/06/17 Appendectomy Lap Cholecystectomy Reported Medications See EMR Family History Noncontributory Social History Patient is and denies tobacco, alcohol and illicit drugs use Physical Exam Vital Signs Vital Signs Date Time Temp Pulse Resp B/P (MAP) Pulse Ox O2 Delivery O2 Flow Rate FiO2 05/09/17 15:40 99.5 69 20 153/69 (97) 90 05/09/17 14:19 94 Nasal Cannula 2.00 05/09/17 12:01 99.8 69 20 144/66 (92) 94 05/09/17 07:38 Nasal Cannula 2.00 05/09/17 07:36 100.6 68 20 148/70 (96) 92 05/09/17 04:58 99.0 63 18 151/63 (92) 97 05/09/17 01:00 98.6 70 18 131/62 (85) 94 05/08/17 20:50 94 Nasal Cannula 2.00 05/08/17 20:29 99.1 64 18 165/66 (99) 88 05/08/17 16:53 98.5 69 16 154/63 (93) 90 Physical Exam GENERAL: This is a well-nourished, well-developed patient, in no apparent distress. SKIN: No rashes, ecchymoses or lesions. Cool and dry. HEAD: s/p craniotomy EYES: Pupils equal round and reactive. Extraocular motions intact. No scleral icterus. No injection or drainage. ENT: Nose without bleeding, purulent drainage or septal hematoma. Throat without erythema, tonsillar hypertrophy or exudate. Uvula midline. Airway patent. NECK: Trachea midline. No JVD or lymphadenopathy. Supple, nontender, no meningeal signs. CARDIOVASCULAR: Regular rate and rhythm without murmurs, gallops, or rubs. RESPIRATORY: Clear to auscultation. Breath sounds decrease bilaterally. No wheezes, rales, or rhonchi. GASTROINTESTINAL: Abdomen soft, non-tender, nondistended. No hepato-splenomegaly , or palpable masses. No guarding. MUSCULOSKELETAL: Extremities without clubbing, cyanosis, or edema. No joint tenderness, effusion, or edema noted. No calf tenderness. Negative Homans sign bilaterally. NEUROLOGICAL: Awake and alert. Cranial nerves II through XII intact. Motor and sensory grossly within normal limits. Five out of 5 muscle strength in all muscle groups. Normal speech. Laboratory Laboratory Tests Test 05/09/17 06:05 White Blood Count 14.1 Red Blood Count 4.32 Hemoglobin 11.7 Hematocrit 35.3 Mean Corpuscular Volume 81.8 Mean Corpuscular Hemoglobin 27.0 Mean Corpuscular Hemoglobin Concent 33.1 Red Cell Distribution Width 13.8 Platelet Count 173 Mean Platelet Volume 9.4 Blood Urea Nitrogen 16 Creatinine 0.71 Random Glucose 100 Calcium Level 8.1 Sodium Level 136 Potassium Level 3.6 Chloride Level 107 Carbon Dioxide Level 22.9 Anion Gap 6 Estimat Glomerular Filtration Rate 84 Thyroid Stimulating Hormone 3rd Gen 0.429 Result Diagram: 05/09/1760405/09/17604 Imaging Last Impressions Head CT 05/09/17 06 Signed Impressions: Service Date/Time: Tuesday, May 09, 2017 09:29 - CONCLUSION: 1. Improving postsurgical changes compared to the prior study. 2. Otherwise, stable CT scan of the brain in this postoperative patient. Robles J. Siragusa, MD Chest X-Ray 05/08/17 0000 Signed Impressions: Service Date/Time: April 22:04 - CONCLUSION: 1. Patchy basilar airspace disease and small bilateral pleural effusions. Findings are new since May 06. Dale Hughes MD Assessment and Plan Problem List: (1) Meningioma ICD Code: D32.9 - Benign neoplasm of meninges, unspecified Assessment and Plan 57 yrs old female with Meningioma s/p Bifrontal craniotomy-resection cribriform plate meningioma POD#3 Management per Neurosurgery Acute respiratory failure Airspace disease per XRay encourage Incentive spirometry use IN the face of Leukocytosis, will start Empiric tx with antibiotic with Levaquin Duo Neb PRN Maintain oxygen saturation above 92% Recommend walk test prior to discharge Diabetes Mellitus 2 Resume oral hypoglycemic agent and start Low dose ISS +FSBG monitoring Hypertension Labile BP Resume oral antihypertensive medications including Coreg and Cozaar Hyperlipidemia Resume Lipitor DVT prophylaxis: B-SCDs Thank you for this consultation Code Status Full code Discussed Condition With patient, , Daughter Layton Rowland MD May 09, 2017 17:02
[2017-05-09] MEDS ORDERED: LEVOFLOXACIN 750 MG PREMIX INJ 150 ML IV ONE (18:00)
[2017-05-09] MEDS ORDERED: diphenhydrAMINE HCL 50 MG/ML VIAL IV PRN (18:30)
[2017-05-09] MEDS: CARVEDILOL 6.25 MG TAB PO SCH (21:25)
[2017-05-09] MEDS: ATORVASTATIN 20 MG TAB PO SCH (21:26)
[2017-05-09] MEDS: LOSARTAN 50 MG TAB PO SCH (21:26)
[2017-05-10] VITALS (7 sets, daily range): BP systolic 123–166; BP diastolic 59–78; PULSE 59–66; RESP 18–20; TEMP 97.7–99.1; O2SAT 93–100
[2017-05-10] MEDS: INSULIN ASPART SUPPLEMENTAL SCALE SQ SCH ×4 (08:00→21:00)
[2017-05-10] MEDS: POLYETHYLENE GLYCOL 17 GM PKG PO SCH (09:00)
[2017-05-10] MEDS: DOCUSATE SODIUM 100 MG CAP PO SCH ×2 (09:00→21:00)
[2017-05-10] MEDS: CARVEDILOL 6.25 MG TAB PO SCH ×2 (10:03→22:51)
[2017-05-10] MEDS: GLIMEPIRIDE 1 MG TAB PO SCH (10:03)
[2017-05-10] MEDS: PANTOPRAZOLE SOD 40 MG DELAYED RELEASE TAB PO SCH (10:03)
--- NOTE | 2017-05-10 10:09 | EKG ---
Date Performed: 05/08/2017 Time Performed: 21:50:02 PTAGE: 57 years EKG: Sinus rhythm NONSPECIFIC T-WAVE ABNORMALITY BORDERLINE ECG NO PREVIOUS TRACING DOCTOR: Rubina Obrien Interpretating Date/Time 05/10/2017 10:08:29
--- NOTE | 2017-05-10 13:14 | HHI.PR ---
Subjective Remarks patient feeling better no fever or chills doing IS efforts- good effort Objective Vitals Vital Signs Date Time Temp Pulse Resp B/P (MAP) Pulse Ox O2 Delivery O2 Flow Rate FiO2 05/10/17 12:00 99.1 59 18 147/75 (99) 98 05/10/17 08:07 95 Nasal Cannula 2.00 05/10/17 08:00 97.7 60 18 132/59 (83) 93 05/10/17 05:10 98.1 63 18 123/62 (82) 97 05/10/17 00:58 98.2 62 18 158/71 (100) 99 05/09/17 21:46 Nasal Cannula 2.00 05/09/17 20:41 98.8 69 18 137/61 (86) 100 05/09/17 15:40 99.5 69 20 153/69 (97) 90 05/09/17 14:19 94 Nasal Cannula 2.00 I/O 05/09/17 05/09/17 05/09/17 05/10/17 05/10/17 05/10/17 07:00 15:00 23:00 07:00 15:00 23:00 Intake Total 480 ml Balance 480 ml Intake Oral 480 ml # Voids 1 3 2 # Bowel Movements 1 Result Diagram: 05/09/17 0605 05/09/17 0605 Imaging Last Impressions Head CT 05/09/17 0600 Signed Impressions: Service Date/Time: Tuesday, May 09, 2017 09:29 - CONCLUSION: 1. Improving postsurgical changes compared to the prior study. 2. Otherwise, stable CT scan of the brain in this postoperative patient. Robles Peter MD Chest X-Ray 05/08/17 0000 Signed Impressions: Service Date/Time: April 22:04 - CONCLUSION: 1. Patchy basilar airspace disease and small bilateral pleural effusions. Findings are new since May 06. Dale Hughes MD Objective Remarks awake and alert, oriented x 3 anicteric no nuchal rigidity lungs- decreased breath sounds, minimal basal rales, no wheezes regular rhythm abdomen soft, nontender extremities no edema A/P Problem List: (1) Meningioma ICD Code: D32.9 - Benign neoplasm of meninges, unspecified Assessment and Plan 57 yrs old female with Meningioma s/p Bifrontal craniotomy-resection cribriform plate meningioma POD#4 Management per Neurosurgery Acute respiratory failure- on further history patient with history SHEREE- advised patient to bring BiPAP- some parts not working -ordered a new one- d/w her to ff up Airspace disease per XRay encourage Incentive spirometry use IN the face of Leukocytosis, started on po Levaquin Duo Neb PRN Maintain oxygen saturation above 92% check walk test if qualifies for home 02 start her back on her diuretics- Dyazide 37.5/25 mg po daily advise her to ff up with PCP- regarding SHEREE- machine Diabetes Mellitus 2 Resume oral hypoglycemic agent and start Low dose ISS +FSBG monitoring Hypertension - better readings continue on Coreg and Cozaar restart her diuretics daily Hyperlipidemia Resume Lipitor DVT prophylaxis: B-SCDs pending walk test- CM consult if qualifies Nikolay Muñoz MD May 10, 2017 13:14
[2017-05-10] MEDS ORDERED: LEVA500T33 PO (13:22)
--- NOTE | 2017-05-10 16:04 | HHI.NSPN ---
s/p craniotomy History Interval History Feels much better today. Was sitting up and walking Wants to go home. Undergoing eval by Medicine due to possible pneumonia On levaquin System Review Comments no change Exam Results Vital Signs Date Time Temp Pulse Resp B/P (MAP) Pulse Ox O2 Delivery O2 Flow Rate FiO2 05/10/17 12:00 99.1 59 18 147/75 (99) 98 05/10/17 08:07 Nasal Cannula 2.00 Physical Examination Alert and awake follows commands oriented x 3 Moves all extremities as before Medical Decision Making Impression and Plan Patient appears much better. Is more awake and interactive Awaiting for a walk test and further eval by medicine May need further equipment at home P: Await until tests are complete Total Minutes: 20 Marshall Velásquez MD May 10, 2017 16:04
[2017-05-10] MEDS: traMADol HCL 50 MG TAB PO PRN (16:17)
[2017-05-10] MEDS: TRIAMTERENE/HCTZ 37.5 MG/25 MG CAP PO SCH (16:17)
[2017-05-10] MEDS: LEVOFLOXACIN 500 MG TAB PO SCH (17:15)
[2017-05-10] MEDS: ATORVASTATIN 20 MG TAB PO SCH (22:51)
[2017-05-10] MEDS: LOSARTAN 50 MG TAB PO SCH (22:52)
[2017-05-11] VITALS: BP 147/68; PULSE 65; RESP 18; TEMP 98; O2SAT 95
[2017-05-11 02:15] VITALS: O2SAT 96
[2017-05-11 04:00] VITALS: BP 124/58; PULSE 96; RESP 18; TEMP 98; O2SAT 98
[2017-05-11 08:00] VITALS: BP 144/70; PULSE 59; RESP 18; TEMP 100.1; O2SAT 95
[2017-05-11] MEDS: INSULIN ASPART SUPPLEMENTAL SCALE SQ SCH (08:00)
[2017-05-11] MEDS: PANTOPRAZOLE SOD 40 MG DELAYED RELEASE TAB PO SCH (08:29)
[2017-05-11] MEDS: GLIMEPIRIDE 1 MG TAB PO SCH (08:29)
[2017-05-11] MEDS: TRIAMTERENE/HCTZ 37.5 MG/25 MG CAP PO SCH (08:29)
[2017-05-11] MEDS: DOCUSATE SODIUM 100 MG CAP PO SCH (08:29)
[2017-05-11] MEDS: LEVOFLOXACIN 500 MG TAB PO SCH (08:29)
[2017-05-11] MEDS: CARVEDILOL 6.25 MG TAB PO SCH (08:29)
[2017-05-11] MEDS: POLYETHYLENE GLYCOL 17 GM PKG PO SCH (08:29)
--- NOTE | 2017-05-11 09:31 | HHI.PR ---
Subjective Remarks awake and alert, ambulating around- at room air- good sats good IS efforts no cough no fever, no chills, no back pain complaints Objective Vitals Vital Signs Date Time Temp Pulse Resp B/P (MAP) Pulse Ox O2 Delivery O2 Flow Rate FiO2 05/11/17 08:00 100.1 59 18 144/70 (94) 95 05/11/17 04:00 98.0 96 18 124/58 (80) 98 05/11/17 02:15 96 21 05/11/17 00:00 98.0 65 18 147/68 (94) 95 05/10/17 22:42 Nasal Cannula 2.00 05/10/17 20:00 99.0 65 20 125/75 (92) 95 05/10/17 16:00 98.5 66 18 166/78 (107) 100 05/10/17 12:00 99.1 59 18 147/75 (99) 98 I/O 05/10/17 05/10/17 05/10/17 05/11/17 05/11/17 05/11/17 07:00 15:00 23:00 07:00 15:00 23:00 # Voids 2 7 Result Diagram: 05/09/17 0605 05/09/17 0605 Imaging Last Impressions Head CT 05/09/17 0600 Signed Impressions: Service Date/Time: Tuesday, May 09, 2017 09:29 - CONCLUSION: 1. Improving postsurgical changes compared to the prior study. 2. Otherwise, stable CT scan of the brain in this postoperative patient. Robles Peter MD Chest X-Ray 05/08/17 0000 Signed Impressions: Service Date/Time: April 22:04 - CONCLUSION: 1. Patchy basilar airspace disease and small bilateral pleural effusions. Findings are new since May 06. Dale Hughes MD Objective Remarks awake and alert, oriented x 3 anicteric no nuchal rigidity lungs- no rales no wheezes regular rhythm abdomen soft, nontender extremities no edema A/P Problem List: (1) Meningioma ICD Code: D32.9 - Benign neoplasm of meninges, unspecified Assessment and Plan 57 yrs old female with Meningioma s/p Bifrontal craniotomy-resection cribriform plate meningioma POD#5 neurologically stable Acute respiratory failure-Resolved on further history patient with history SHEREE- advised patient to bring BiPAP - some parts not working -ordered a new one- d/w her to ff up good sats at room air Airspace disease per XRay encourage Incentive spirometry use IN the face of Leukocytosis, started on po Levaquin- DC on po antibiotics Duo Neb PRN good sats at room air and on ambulation start her back on her diuretics- Dyazide 37.5/25 mg po daily advise her to ff up with PCP- regarding SHEREE- machine Diabetes Mellitus 2 Resume oral hypoglycemic agent and start Low dose ISS +FSBG monitoring Hypertension - better readings continue on Coreg and Cozaar restarted her diuretics daily Hyperlipidemia Resume Lipitor DVT prophylaxis: B-SCDs Medically stable for DC today OP ff up with PCP Nikolay Muñoz MD May 11, 2017 09:31
[2017-05-11 09:51] VITALS: TEMP 98.1
== END 2017-05-11 10:54 | disposition home or self-care (01) | DRG 26 ==
LOC: HSDI 05:47 → N03A 16:31 → N05B 05-07 16:50
PROVIDERS: ADMIT Neurological Surgery; ATTEND Neurological Surgery
PROC: 0NU Head and Facial Bones, Supplement (ICD-10-PCS; 2017-05-06)
PROC: 00U10KZ Supplement Cerebral Meninges with Nonautologous Tissue Substitute, Open Approach (ICD-10-PCS; 2017-05-06)
PROC: 00B10ZZ Excision of Cerebral Meninges, Open Approach (ICD-10-PCS; principal; 2017-05-06 08:42)
DX: D32.9 Benign neoplasm of meninges, unspecified (principal); J90 Pleural effusion, not elsewhere classified; I10 Essential (primary) hypertension; E11.9 Type 2 diabetes mellitus without complications; E78.5 Hyperlipidemia, unspecified; R20.2 Paresthesia of skin; R11.0 Nausea; K59.00 Constipation, unspecified; G47.33 Obstructive sleep apnea (adult) (pediatric)
CPT/HCPCS: 70450; 71010; 71020; 76937; 80048; 82948; 84443; 85025; 85027; 85610; 85730; 86850; 86900; 86901; 88307; 93005; 94150; 94620; C1713; C1768; J0131; J0690; J1100; J1170; J1580; J1956; J2250; J2370; J2405; J2550; J3010; J3480; J7050; J7120; J8501

== ENCOUNTER 2017-11-04 15:33 | Emergency (ER) | payer OTHER ==
[~2017-11-04] VITALS: Ht 160 cm; Wt 95.0 kg
[~2017-11-04 15:33] MED LIST changes: -ATOR20TA15 PO; +DOCU1CAP39 PO; +LEVA500T33 PO; -MOME0.1C23 TOPICAL; +POLY17S PO; +WALKER WHEELS/F1 MIS
[2017-11-04 15:56] VITALS: BP 150/73; PULSE 65; RESP 15; TEMP 97.9
[2017-11-04 16:48] VITALS: BP 146/79; PULSE 66; RESP 15; O2SAT 98
--- NOTE | 2017-11-04 16:48 | PD ---
HPI Chief Complaint: Neuro Symptoms/ Deficits Time Seen by Provider: 16:16 Travel History International Travel<30 days: No Contact w/Intl Traveler<30days: No Traveled to known affect area: No History of Present Illness HPI 57-year-old female complains of right-sided facial numbness and seizure. Patient status post frontal craniotomy in April 2018 secondary to meningioma. Patient states that she had mild right-sided facial numbness after the surgery. Patient states that the right-sided facial numbness is worse since last night. Patient had a generalized tonic-clonic seizure yesterday which lasted about 5 minutes. Patient states that she had post ictal state. Patient complains of tingling sensation on the tip of the fingers for the past week or so. Patient today complains of mild aching headache. Patient denies any visual change. Patient complains of right-sided neck aching pain. Patient denies any chest pain or shortness of breath. Patient denies abdominal pain. Patient denies any other focal weakness or numbness of the extremity. Patient did not injure herself during the seizure episode yesterday. Patient denies any alcohol or drug abuse. Patient denies any history of seizure in the past except yesterday. PFSH Past Medical History Cancer: No Cardiovascular Problems: No Diabetes: Yes Patient Takes Glucophage: No Diminished Hearing: No Endocrine: No Gastrointestinal Disorders: Yes (GERD) Genitourinary: No Hepatitis: No Hiatal Hernia: No Hypertension: Yes Immune Disorder: No Neurologic: Yes (FRONTAL LOBE TUMOR) Psychiatric: No Reproductive: No Respiratory: No Thyroid Disease: No Tetanus Vaccination: < 5 Years Tubal Ligation: Yes Past Surgical History Abdominal Surgery: Yes (APPENDECTOMY, CHOLECYSTECTOMY) AICD: No Appendectomy: Yes Cardiac Surgery: No Cholecystectomy: Yes Ear Surgery: No Endocrine Surgery: No Eye Surgery: No (TUBAL LIGATION. ABLATION) Genitourinary Surgery: No Gynecologic Surgery: Yes (ABLATION, TUBAL LIGATION) Joint Replacement: No Neurologic Surgery: Yes (BRAIN SURGERY 2017) Oral Surgery: No Pacemaker: No Thoracic Surgery: No Social History Alcohol Use: No Tobacco Use: No Substance Use: No Allergies-Medications (Allergen,Severity, Reaction): Coded Allergies: lisinopril (Verified Allergy, Severe, SEVERE COUGH, 11/04/17) ciprofloxacin (Verified Allergy, Intermediate, Itching, 11/04/17) codeine (Verified Allergy, Intermediate, Nausea/Vomiting, 11/04/17) morphine (Verified Allergy, Intermediate, Nausea/Vomiting, 11/04/17) oxycodone (Verified Allergy, Intermediate, Nausea/Vomiting, 11/04/17) Reported Meds & Prescriptions Reported Meds & Active Scripts Active Keppra (Levetiracetam) 500 Mg Tab 500 Mg PO BID Tramadol (Tramadol HCl) 50 Mg Tab 50 Mg PO Q6HR PRN Polyethylene Glycol 3350 Powder (Polyethylene Glycol) 17 Gram Pow 17 Gm PO DAILY Dok (Docusate Sodium) 100 Mg Cap 100 Mg PO BID Reported True Metrix Glucose Test Strips (Blood Glucose Test Strips) 1 Antonia Antonia 1 Strip DAILY Potassium Chloride ER (Potassium Chloride) 10 Meq Tab 10 Meq PO DAILY Carvedilol 6.25 Mg Tab 6.25 Mg PO BID Estradiol Patch 168 HR (Estradiol) 0.05 Mg/24 Hr Patch 1 Patch TD WEEKLY Losartan (Losartan Potassium) 50 Mg Tab 50 Mg PO HS Progesterone Micronized 200 Mg Cap 200 Mg PO DAILY Omeprazole 20 Mg Cap 20 Mg PO DAILY Glimepiride 1 Mg Tab 1 Mg PO DAILY Triamterene-Hydrochlorothiazide 37.5-25 Mg Cap 1 Tab PO DAILY Review of Systems General / Constitutional: No: Fever Eyes: No: Visual changes HENT: Positive: Headaches Cardiovascular: No: Chest Pain or Discomfort Respiratory: No: Shortness of Breath Gastrointestinal: No: Abdominal Pain Genitourinary: No: Dysuria Musculoskeletal: No: Pain Skin: No Rash Neurologic: Positive: Seizures, No: Weakness Psychiatric: No: Depression Endocrine: No: Polydipsia Hematologic/Lymphatic: No: Easy Bruising Physical Exam Narrative GENERAL: Well-nourished, well-developed patient. SKIN: Focused skin assessment warm/dry. HEAD: Normocephalic. EYES: No scleral icterus. No injection or drainage. Pupils 2 mm equal reactive. NECK: Supple, trachea midline. No JVD or lymphadenopathy. CARDIOVASCULAR: Regular rate and rhythm without murmurs, gallops, or rubs. RESPIRATORY: Breath sounds equal bilaterally. No accessory muscle use. GASTROINTESTINAL: Abdomen soft, non-tender, nondistended. MUSCULOSKELETAL: No cyanosis, or edema. BACK: Nontender without obvious deformity. No CVA tenderness. Neurologic exam normal. Data Data Last Documented VS Vital Signs Date Time Temp Pulse Resp B/P (MAP) Pulse Ox O2 Delivery O2 Flow Rate FiO2 11/04/17 19:39 11/04/17 16:48 66 15 98 Room Air 11/04/17 15:56 97.9 Orders Orders Complete Blood Count With Diff (11/04/17 16:33) Basic Metabolic Panel (Bmp) (11/04/17 16:33) Prothrombin Time / Inr (Pt) (11/04/17 16:33) Act Partial Throm Time (Ptt) (11/04/17 16:33) Thyroid Stimulating Hormone (11/04/17 16:33) Iv Access Insert/Monitor (11/04/17 16:33) Ecg Monitoring (11/04/17 16:33) Oximetry (11/04/17 16:33) Mri Brain W&W/O Contrast (11/04/17 16:33) Levetiracetam Inj (Keppra Inj) (11/04/17 17:00) Gadodiamide Pf Inj (Omniscan Pf Inj) (11/04/17 18:57) Lorazepam (Ativan) (11/04/17 19:45) Ed Discharge Order (11/04/17 19:32) Potassium Chloride (Kcl) (11/04/17 19:45) Labs Laboratory Tests Test 11/04/17 16:35 White Blood Count 9.3 TH/MM3 Red Blood Count 4.81 MIL/MM3 Hemoglobin 12.6 GM/DL Hematocrit 38.4 % Mean Corpuscular Volume 79.8 FL Mean Corpuscular Hemoglobin 26.1 PG Mean Corpuscular Hemoglobin Concent 32.7 % Red Cell Distribution Width 14.7 % Platelet Count 225 TH/MM3 Mean Platelet Volume 9.0 FL Neutrophils (%) (Auto) 63.6 % Lymphocytes (%) (Auto) 27.5 % Monocytes (%) (Auto) 6.2 % Eosinophils (%) (Auto) 2.2 % Basophils (%) (Auto) 0.5 % Neutrophils # (Auto) 5.9 TH/MM3 Lymphocytes # (Auto) 2.6 TH/MM3 Monocytes # (Auto) 0.6 TH/MM3 Eosinophils # (Auto) 0.2 TH/MM3 Basophils # (Auto) 0.0 TH/MM3 CBC Comment DIFF FINAL Differential Comment Prothrombin Time 10.2 SEC Prothromb Time International Ratio 1.0 RATIO Activated Partial Thromboplast Time 25.1 SEC Blood Urea Nitrogen 14 MG/DL Creatinine 0.95 MG/DL Random Glucose 138 MG/DL Calcium Level 8.9 MG/DL Sodium Level 141 MEQ/L Potassium Level 3.3 MEQ/L Chloride Level 105 MEQ/L Carbon Dioxide Level 25.4 MEQ/L Anion Gap 11 MEQ/L Estimat Glomerular Filtration Rate 60 ML/MIN Thyroid Stimulating Hormone 3rd Gen 1.580 uIU/ML MDM Medical Decision Making Medical Screen Exam Complete: Yes Emergency Medical Condition: Yes Interpretation(s) Last Impressions Brain MRI 11/04/17 1633 Signed Impressions: CONCLUSION: 1. Minimal artifact from previous bifrontal surgery. Negative for recurrent di sease. 2. I do not see an etiology of patient's seizure focus. 1903 p.m. CBC within normal limits. Potassium 3.3. Differential Diagnosis Differential diagnosis including new onset seizure, electrolyte imbalance, intracranial pathology. Narrative Course 57-year-old female with new onset seizure. Status post frontal craniotomy in April 2017 for meningioma. Patient also complained with numbness sensation in the right side of face. I spoke with Dr. Eason, neurosurgeon. Advise Kekrystle. Keppra 1 g IV given. KCl 20 mg p.o. given. I spoke with Dr. Banks, neurologist artist relationship manager. Advise Kekrystle also. Ativan 1 mg p.o. given. Diagnosis Primary Impression: Seizure Additional Impression: Hypokalemia Patient Instructions: General Instructions Additional Instructions: Take Keppra as directed. Follow up with neurosurgeon and neurologist. Increase potassium daily to 20 mEq daily. Follow-up with local physician on potassium level checked. Med/Other Pt SpecificInfo: Prescription(s) given Scripts Levetiracetam (Keppra) 500 Mg Tab 500 MG PO BID for Control Seizures, #60 TAB 0 Refills Prov: Kelvin Prasad MD 11/04/17 Disposition: 01 DISCHARGE HOME Condition: Stable Kelvin Prasad MD Nov 04, 2017 16:48
[2017-11-04] MEDS ORDERED: levETIRAcetam INJ 100 ML IV ONE (17:00)
[2017-11-04 17:12] LABS: AUTOMATED NEUTROPHIL # 5.9 TH/MM3 (1.8-7.7); BASOPHIL % 0.5 % (0.0-2.0); EOSINOPHIL # 0.2 TH/MM3 (0-0.4); EOSINOPHIL % 2.2 % (0.0-4.0); HEMATOCRIT 38.4 % (35.0-46.0); HEMOGLOBIN 12.6 GM/DL (11.6-15.3); LYMPH % 27.5 % (9.0-44.0); LYMPHOCYTE # 2.6 TH/MM3 (1.0-4.8); MEAN CELL VOLUME 79.8 FL (80.0-100.0); MEAN CORPUSCULAR HEMOGLOBIN 26.1 PG (27.0-34.0); MEAN CORPUSCULAR HGB CONC 32.7 % (32.0-36.0); MONO % 6.2 % (0.0-8.0); MONOCYTE # 0.6 TH/MM3 (0-0.9); NEUT % 63.6 % (16.0-70.0); PLATELET COUNT 225 TH/MM3 (150-450); RED BLOOD COUNT 4.81 MIL/MM3 (4.00-5.30); RED CELL DISTRIBUTION WIDTH 14.7 % (11.6-17.2); WHITE BLOOD COUNT 9.3 TH/MM3 (4.0-11.0)
[2017-11-04 17:16] LABS: PROTHROMBIN TIME - PATIENT 10.2 SEC (9.8-11.6)
[2017-11-04 17:17] LABS: BICARBONATE 25.4 MEQ/L (21.0-32.0); CALCIUM 8.9 MG/DL (8.5-10.1); CREATININE 0.95 MG/DL (0.50-1.00)
--- NOTE | 2017-11-04 18:31 | RADRPT ---
EXAM DATE: 11/04/2017 6:23 PM EDT AGE/SEX: 57 years / Female INDICATIONS: Seizures. Right sided weakness. CLINICAL DATA: This is the patient's initial encounter. Patient reports that signs and symptoms have been present for 1 day and indicates a pain score of 0/10. MEDICAL/SURGICAL HISTORY: Hypertension. Diabetes mellitus type II. Renal calculi. Meningioma . Craniotomy. Appendectomy. Cholecystectomy. Tubal ligation. COMPARISON: No prior exams available for comparison. TECHNIQUE: Multiplanar, multisequence examination of the brain was performed without and with 19 ml O mniscan (gadodiamide) contrast as a single exam dose. FINDINGS: Ventricular size is appropriate. There is evidence for a previous right bifrontal craniotomy with art ifact evident. There are no extra-axial fluid collections appreciated. There is no restricted diffusi on evident. Posterior fossa is unremarkable with midline fourth ventricle. There is no abnormal contrast enhancement. The minimal artifact from the postsurgical changes in the bifrontal region could obscure subtle recur rent tumor, thought to be low probability based on the appearance of the scan. CONCLUSION: 1. Minimal artifact from previous bifrontal surgery. Negative for recurrent disease. 2. I do not see an etiology of patient's seizure focus. Electronically signed by: Byron Dorsey MD 11/04/2017 6:29 PM EDT
[2017-11-04] MEDS ORDERED: GADODIAMIDE PF 287 MG/ML 20 ML VIAL (for RAD MRI) IVCONTRAST ONE (18:57)
[2017-11-04] MEDS ORDERED: LEVE500 PO (19:31)
[2017-11-04] MEDS ORDERED: POTASSIUM CHLORIDE 20 MEQ CONTROLLED RELEASE TAB PO ONE (19:45)
[2017-11-04] MEDS ORDERED: LORazepam 1 MG TAB PO ONE (19:45)
== END 2017-11-04 19:58 | disposition home or self-care (01) ==
LOC: NEPE 15:33
DX: G40.409 Other generalized epilepsy and epileptic syndromes, not intractable, without status epilepticus (principal); E87.6 Hypokalemia; R51 Headache; E11.9 Type 2 diabetes mellitus without complications; I10 Essential (primary) hypertension; K21.9 Gastro-esophageal reflux disease without esophagitis; Z79.84 Long term (current) use of oral hypoglycemic drugs; Z79.899 Other long term (current) drug therapy; Z86.011 Personal history of benign neoplasm of the brain
CPT/HCPCS: 70553; 80048; 84443; 85025; 85610; 85730; 96365; 96366; 99284; A9579; J1953